=== PATIENT | male | born 1960 | race Caucasian/White ===

== ENCOUNTER 2020-05-12 08:10 | Outpatient (REF) | payer OTHER, SELFPAY ==
[2020-05-12 09:37] LABS: MANUAL DIFF FLAG NO
[2020-05-12 09:41] LABS: Basophils Percent Auto 0.5 % (0-2); Eosinophils Absolute Auto 0.3 X10*3/uL (0.0-0.4); Eosinophils Percent Auto 5.3 % (0-4); Hematocrit 46.2 % (42-52); Imm Gran Abs Auto 0.03 X10*3/uL (0.00-0.03); Imm Gran Pct Auto 0.5 % (0.0-0.4); Lymphocytes Absolute Auto 1.6 X10*3/uL (1.2-4.9); Lymphocytes Percent Auto 28.8 % (20-40); Mean Corpuscular HGB Conc 32.5 g/dl (31.0-36.0); Mean Corpuscular Hemoglobin 31.8 pg (27.0-33.0); Mean Corpuscular Volume 97.9 fL (80-98); Mean Platelet Volume 11.2 fL (9.4-12.4); Monocytes Absolute Auto 0.6 X10*3/uL (0.1-1.2); Monocytes Percent Auto 10.6 % (2-11); Neutrophils Percent Auto 54.3 % (45-73); Platelet Count 245 X10*3/uL (160-400); Red Blood Count 4.72 X10*6/uL (4.60-5.80); Red Cell Distribution Width 13.7 % (11.0-16.0); White Blood Count 5.5 X10*3/uL (4.8-10.8)
[2020-05-12 09:50] LABS: Estimated Average Glucose 100 mg/dL; Hemoglobin A1c % 5.1 %
[2020-05-12 09:56] LABS: Glucose Urine UA NEG (NEG); Leukocyte Esterase Urine NEG (NEG); Nitrite Urine NEG (NEG); Specific Gravity - Urine >= 1.030 (1.005-1.025); Urine Blood NEG (NEG); Urine Ketones 15 MG/DL (NEG); Urine Protein NEG (NEG-TRACE)
[2020-05-12 09:59] LABS: Appearance Urine CLEAR; Color Urine YELLOW
[2020-05-12 10:09] LABS: Alanine Aminotransferase 16 U/L (0-40); Albumin Level 4.1 g/dL (3.5-5.0); Alkaline Phosphatase 70 U/L (39-117); Anion Gap 14 (12-20); Aspartate Amino Transferase 22 U/L (5-37); Bilirubin Total 1.1 mg/dL (0.0-1.0); Blood Urea Nitrogen 21 mg/dL (9-16); Calcium 8.7 mg/dL (8.4-10.2); Carbon Dioxide 27 mmol/L (22-29); Chloride 103 mmol/L (96-108); Cholesterol 261 mg/dL; Estimated Glomerular Filt Rate > 60; Glucose Fasting 89 mg/dL (60-99); HDL Cholesterol 72 mg/dL; LDL Cholesterol Calculated 173 mg/dl; Potassium 4.6 mmol/l (3.3-5.1); Sodium 139 mmol/L (135-145); Total Protein 6.8 g/dL (6.5-8.0); Triglycerides 80 mg/dL
[2020-05-12 11:08] LABS: Creatinine Urine 250.93 mg/dL; Microalbum/Creatinine Ratio Ur 8.3 ug/mg cr
== END 2020-05-12 08:11 | disposition home or self-care (01) ==
LOC: HO.LAB 08:10
PROVIDERS: PCP Internal Medicine; Visit Provider Internal Medicine
DX: R73.09 Other abnormal glucose (principal); Z00.00 Encounter for general adult medical examination without abnormal findings; E78.00 Pure hypercholesterolemia, unspecified
CPT/HCPCS: 36415; 80053; 80061; 81003; 82043; 83036; 84153; 85025

== ENCOUNTER 2021-05-31 10:35 | Outpatient (REF) | payer BC, SELFPAY ==
[2021-05-31 10:39] LABS: MANUAL DIFF FLAG NO
[2021-05-31 11:12] LABS: Basophils Percent Auto 0.7 % (0-2); Eosinophils Absolute Auto 0.3 X10*3/uL (0.0-0.4); Eosinophils Percent Auto 5.9 % (0-4); Hematocrit 44.8 % (42.0-52.0); Hemoglobin 14.5 g/dl (14.0-18.0); Imm Gran Abs Auto 0.01 X10*3/uL (0.00-0.03); Imm Gran Pct Auto 0.2 % (0.0-0.4); Lymphocytes Absolute Auto 1.9 X10*3/uL (1.2-4.9); Lymphocytes Percent Auto 34.6 % (20-40); Mean Corpuscular HGB Conc 32.4 g/dl (31.0-36.0); Mean Corpuscular Hemoglobin 32.3 pg (27.0-33.0); Mean Corpuscular Volume 99.8 fL (80.0-98.0); Mean Platelet Volume 11.6 fL (9.4-12.4); Monocytes Absolute Auto 0.6 X10*3/uL (0.1-1.2); Monocytes Percent Auto 11.2 % (2-11); Neutrophils Absolute Auto 2.6 x10*3/uL (2.0-8.3); Neutrophils Percent Auto 47.4 % (45-73); Platelet Count 227 X10*3/uL (160-400); Red Blood Count 4.49 X10*6/uL (4.60-5.80); Red Cell Distribution Width 13.5 % (11.0-16.0); White Blood Count 5.4 X10*3/uL (4.8-10.8)
[2021-05-31 11:19] LABS: Appearance Urine CLEAR; Color Urine YELLOW; Glucose Urine UA NEG (NEG); Leukocyte Esterase Urine NEG (NEG); Nitrite Urine NEG (NEG); Specific Gravity - Urine 1.025 (1.005-1.025); Urine Blood NEG (NEG); Urine Ketones 15 MG/DL (NEG); Urine Protein TRACE MG/DL (NEG-TRACE)
[2021-05-31 11:22] LABS: Estimated Average Glucose 97 mg/dL
[2021-05-31 11:41] LABS: Microalbum/Creatinine Ratio Ur 10.1 ug/mg cr
[2021-05-31 11:57] LABS: Alanine Aminotransferase 17 U/L (0-40); Albumin Level 3.9 g/dL (3.5-5.0); Alkaline Phosphatase 55 U/L (39-117); Anion Gap 11 (12-20); Aspartate Amino Transferase 23 U/L (5-37); Bilirubin Total 1.3 mg/dL (0.0-1.0); Blood Urea Nitrogen 19 mg/dL (9-16); Calcium 8.9 mg/dL (8.4-10.2); Carbon Dioxide 27 mmol/L (22-29); Chloride 103 mmol/L (96-108); Cholesterol 255 mg/dL; Estimated Glomerular Filt Rate > 60; Glucose Fasting 103 mg/dL (60-99); HDL Cholesterol 76 mg/dL; LDL Cholesterol Calculated 162 mg/dl; Potassium 3.9 mmol/L (3.3-5.1); Sodium 137 mmol/L (135-145); Total Protein 6.5 g/dL (6.5-8.0); Triglycerides 85 mg/dL
[2021-05-31 12:39] LABS: PSA,Total (Free>4and<10) 4.03 ng/mL (0.00-4.00)
[2021-05-31 13:08] LABS: Reflex LDLD? No
[2021-06-01 12:41] LABS: Free Prostate Spec Ag 0.3 ng/mL; Percent Free Prostate Spec Ag 9 % (calc) (>25); Prostate Specific Ag Total 3.5 ng/mL (< OR = 4.0)
== END 2021-05-31 10:36 | disposition home or self-care (01) ==
LOC: HO.LNP 10:35
PROVIDERS: Visit Provider Internal Medicine
DX: Z00.00 Encounter for general adult medical examination without abnormal findings (principal); Z12.5 Encounter for screening for malignant neoplasm of prostate; E78.00 Pure hypercholesterolemia, unspecified; R73.03 Prediabetes
CPT/HCPCS: 80053; 80061; 81003; 82043; 83036; 84153; 84154; 85025

== ENCOUNTER 2021-06-08 15:52 | Outpatient (REF) | payer BC, SELFPAY ==
[2021-06-08 17:08] LABS: PSA,Total (Free>4and<10) 3.76 ng/mL (0.00-4.00)
== END 2021-06-08 15:53 | disposition home or self-care (01) ==
LOC: HO.LNP 15:52
PROVIDERS: Visit Provider Internal Medicine
DX: R97.20 Elevated prostate specific antigen [PSA] (principal); Z12.5 Encounter for screening for malignant neoplasm of prostate
CPT/HCPCS: 84153

== ENCOUNTER 2021-09-16 11:30 | Outpatient (REF) | payer BC, SELFPAY ==
[2021-09-16 15:37] LABS: PSA,Total (Free>4and<10) 4.07 ng/mL (0.00-4.00)
[2021-09-17 11:17] LABS: Free Prostate Spec Ag 0.4 ng/mL; Percent Free Prostate Spec Ag 11 % (calc) (>25); Prostate Specific Ag Total 3.6 ng/mL (< OR = 4.0)
== END 2021-09-16 11:31 | disposition home or self-care (01) ==
LOC: HO.LNP 11:30
PROVIDERS: Visit Provider Internal Medicine
DX: Z12.5 Encounter for screening for malignant neoplasm of prostate (principal)
CPT/HCPCS: 84153; 84154

== ENCOUNTER 2022-06-07 12:18 | Outpatient (REF) | payer BC, SELFPAY ==
[2022-06-07 12:21] LABS: MANUAL DIFF FLAG NO
[2022-06-07 12:31] LABS: Appearance Urine Clear; Color Urine Dark Yellow; Glucose Urine UA Negative (Negative); Leukocyte Esterase Urine Negative (Negative); Nitrite Urine Negative (Negative); Specific Gravity - Urine >= 1.030 (1.005-1.025); UMIC TRIGGER UA YES; Urine Blood Negative (Negative); Urine Ketones 40 mg/dL (Negative); Urine Protein 30 (1+) mg/dL (Neg-Trace)
[2022-06-07 12:32] LABS: Basophils Percent Auto 0.4 % (0-2); Eosinophils Absolute Auto 0.3 X10*3/uL (0.0-0.4); Hematocrit 47.1 % (42.0-52.0); Hemoglobin 15.5 g/dl (14.0-18.0); Imm Gran Abs Auto 0.03 X10*3/uL (0.00-0.03); Imm Gran Pct Auto 0.4 % (0.0-0.4); Lymphocytes Absolute Auto 0.6 X10*3/uL (1.2-4.9); Lymphocytes Percent Auto 9.6 % (20-40); Mean Corpuscular HGB Conc 32.9 g/dl (31.0-36.0); Mean Corpuscular Hemoglobin 32.6 pg (27.0-33.0); Mean Corpuscular Volume 98.9 fL (80.0-98.0); Mean Platelet Volume 11.4 fL (9.4-12.4); Monocytes Absolute Auto 0.6 X10*3/uL (0.1-1.2); Monocytes Percent Auto 8.7 % (2-11); Neutrophils Absolute Auto 5.2 x10*3/uL (2.0-8.3); Neutrophils Percent Auto 76.9 % (45-73); Platelet Count 249 X10*3/uL (160-400); Red Blood Count 4.76 X10*6/uL (4.60-5.80); Red Cell Distribution Width 13.9 % (11.0-16.0); White Blood Count 6.7 X10*3/uL (4.8-10.8)
[2022-06-07 12:33] LABS: Bacteria Urine None Seen (None Seen); Hyaline Casts Urine 0-2 /LPF (0-2); RBC Urine 0-2 /HPF (0-2); Squamous Epithelial Cell Urine 0-2 /HPF (0-2); WBC Urine 0-5 /HPF (0-5)
[2022-06-07 12:45] LABS: Estimated Average Glucose 91 mg/dL; Hemoglobin A1c % 4.8 %
[2022-06-07 13:08] LABS: Alanine Aminotransferase 11 U/L (0-40); Albumin Level 4.2 g/dL (3.5-5.0); Alkaline Phosphatase 80 U/L (39-117); Anion Gap 11 (12-20); Aspartate Amino Transferase 18 U/L (5-37); Bilirubin Total 1.2 mg/dL (0.0-1.0); Blood Urea Nitrogen 13 mg/dL (9-16); Calcium 8.9 mg/dL (8.4-10.2); Carbon Dioxide 27 mmol/L (22-29); Chloride 103 mmol/L (96-108); Cholesterol 242 mg/dL; Estimated Glomerular Filt Rate > 60; Glucose Fasting 104 mg/dL (60-99); HDL Cholesterol 74 mg/dL; LDL Cholesterol Calculated 152 mg/dl; Sodium 137 mmol/L (135-145); Total Protein 6.9 g/dL (6.5-8.0); Triglycerides 83 mg/dL
[2022-06-07 13:28] LABS: Microalbum/Creatinine Ratio Ur 9.8 ug/mg cr
== END 2022-06-07 12:19 | disposition home or self-care (01) ==
LOC: HO.LNP 12:18
PROVIDERS: Visit Provider Internal Medicine
DX: Z00.00 Encounter for general adult medical examination without abnormal findings (principal); R73.03 Prediabetes; E78.00 Pure hypercholesterolemia, unspecified
CPT/HCPCS: 80053; 80061; 81001; 82043; 83036; 85025

== ENCOUNTER 2023-07-17 12:05 | Outpatient (REF) | payer BC, SELFPAY ==
[2023-07-17 12:09] LABS: MANUAL DIFF FLAG NO
[2023-07-17 12:21] LABS: Basophils Absolute Auto 0.1 X10*3/uL (0.0-0.2); Basophils Percent Auto 1.3 % (0-2); Eosinophils Absolute Auto 0.4 X10*3/uL (0.0-0.4); Hematocrit 47.2 % (42.0-52.0); Hemoglobin 15.6 g/dl (14.0-18.0); Imm Gran Abs Auto 0.02 X10*3/uL (0.00-0.03); Imm Gran Pct Auto 0.3 % (0.0-0.4); Lymphocytes Absolute Auto 1.9 X10*3/uL (1.2-4.9); Mean Corpuscular HGB Conc 33.1 g/dl (31.0-36.0); Mean Corpuscular Hemoglobin 31.8 pg (27.0-33.0); Mean Corpuscular Volume 96.3 fL (80.0-98.0); Mean Platelet Volume 11.2 fL (9.4-12.4); Monocytes Absolute Auto 0.5 X10*3/uL (0.1-1.2); Monocytes Percent Auto 8.6 % (2-11); Neutrophils Absolute Auto 3.3 x10*3/uL (2.0-8.3); Neutrophils Percent Auto 52.8 % (45-73); Platelet Count 262 X10*3/uL (160-400); Red Cell Distribution Width 13.5 % (11.0-16.0); White Blood Count 6.2 X10*3/uL (4.8-10.8)
[2023-07-17 12:29] LABS: Appearance Urine Clear; Color Urine Dark Yellow; Glucose Urine UA Negative (Negative); Leukocyte Esterase Urine Trace (Negative); Nitrite Urine Negative (Negative); PH 5.5 (5.0-9.0); UMIC TRIGGER UACC YES; Urine Blood Negative (Negative); Urine Ketones 40 mg/dL (Negative); Urine Protein Trace mg/dL (Neg-Trace)
[2023-07-17 12:35] LABS: Estimated Average Glucose 88 mg/dL; Hemoglobin A1c % 4.7 % (<6.0)
[2023-07-17 12:36] LABS: Bacteria Urine None Seen (None Seen); Hyaline Casts Urine 0-2 /LPF (0-2); RBC Urine 0-2 /HPF (0-2); Squamous Epithelial Cell Urine 0-2 /HPF (0-2); WBC Urine 0-5 /HPF (0-5)
[2023-07-17 12:52] LABS: Alanine Aminotransferase 12 U/L (0-40); Alkaline Phosphatase 74 U/L (39-117); Anion Gap 16 (12-20); Aspartate Amino Transferase 17 U/L (5-37); Blood Urea Nitrogen 13 mg/dL (9-16); Calcium 9.2 mg/dL (8.4-10.2); Carbon Dioxide 27 mmol/L (22-29); Chloride 101 mmol/L (96-108); Cholesterol 224 mg/dL (<200); Estimated Glomerular Filt Rate > 60; Glucose Fasting 85 mg/dL (60-99); HDL Cholesterol 72 mg/dL (>40); LDL Cholesterol Calculated 135 mg/dL (<100); Potassium 3.6 mmol/L (3.3-5.1); Sodium 140 mmol/L (135-145); Triglycerides 88 mg/dL (<150)
[2023-07-17 13:05] LABS: Creatinine Urine 252.34 mg/dL; Microalbum/Creatinine Ratio Ur 14.6 ug/mg cr (<30)
[2023-07-17 13:10] LABS: PSA,Total (Free>4and<10) < 0.10 ng/mL (0.00-4.00)
== END 2023-07-17 12:06 | disposition home or self-care (01) ==
LOC: HO.LNP 12:05
PROVIDERS: Visit Provider Internal Medicine
DX: Z00.00 Encounter for general adult medical examination without abnormal findings (principal); Z12.5 Encounter for screening for malignant neoplasm of prostate; E78.00 Pure hypercholesterolemia, unspecified; R73.03 Prediabetes
CPT/HCPCS: 80053; 80061; 81001; 82043; 82570; 83036; 84153; 85025

== ENCOUNTER 2024-07-23 07:30 | Outpatient (REF) | payer BC, SELFPAY ==
[2024-07-23 10:52] LABS: MANUAL DIFF FLAG NO
[2024-07-23 10:59] LABS: Basophils Absolute Auto 0.1 X10*3/uL (0.0-0.2); Basophils Percent Auto 0.9 % (0-2); Eosinophils Absolute Auto 0.3 X10*3/uL (0.0-0.4); Eosinophils Percent Auto 4.7 % (0-4); Hematocrit 44.1 % (42.0-52.0); Hemoglobin 14.7 g/dl (14.0-18.0); Imm Gran Abs Auto 0.02 X10*3/uL (0.00-0.03); Imm Gran Pct Auto 0.3 % (0.0-0.4); Lymphocytes Absolute Auto 1.7 X10*3/uL (1.2-4.9); Lymphocytes Percent Auto 26.6 % (20-40); Mean Corpuscular HGB Conc 33.3 g/dl (31.0-36.0); Mean Corpuscular Hemoglobin 32.2 pg (27.0-33.0); Mean Corpuscular Volume 96.5 fL (80.0-98.0); Mean Platelet Volume 10.8 fL (9.4-12.4); Monocytes Absolute Auto 0.5 X10*3/uL (0.1-1.2); Monocytes Percent Auto 8.3 % (2-11); Neutrophils Absolute Auto 3.8 x10*3/uL (2.0-8.3); Neutrophils Percent Auto 59.2 % (45-73); Platelet Count 300 X10*3/uL (160-400); Red Blood Count 4.57 X10*6/uL (4.60-5.80); Red Cell Distribution Width 14.3 % (11.0-16.0); White Blood Count 6.4 X10*3/uL (4.8-10.8)
[2024-07-23 11:09] LABS: Appearance Urine Clear; Color Urine Yellow; Glucose Urine UA Negative (Negative); Leukocyte Esterase Urine Negative (Negative); Nitrite Urine Negative (Negative); Specific Gravity - Urine 1.025 (1.005-1.025); Urine Blood Negative (Negative); Urine Ketones 40 mg/dL (Negative); Urine Protein Negative (Neg-Trace)
[2024-07-23 11:32] LABS: Alanine Aminotransferase 14 U/L (0-40); Alkaline Phosphatase 65 U/L (39-117); Anion Gap 11 (12-20); Aspartate Amino Transferase 23 U/L (5-37); Blood Urea Nitrogen 17 mg/dL (9-16); Calcium 8.6 mg/dL (8.4-10.2); Carbon Dioxide 27 mmol/L (22-29); Chloride 104 mmol/L (96-108); Cholesterol 251 mg/dL (<200); Estimated Glomerular Filt Rate > 60; Glucose Fasting 88 mg/dL (60-99); HDL Cholesterol 83 mg/dL (>40); LDL Cholesterol Calculated 154 mg/dL (<100); Potassium 4.2 mmol/L (3.3-5.1); Sodium 138 mmol/L (135-145); Total Protein 6.8 g/dL (6.5-8.0); Triglycerides 71 mg/dL (<150)
[2024-07-23 11:40] LABS: Estimated Average Glucose 97 mg/dL; Hemoglobin A1C 119.8627 umol/L; Total Hemoglobin (HGBA1C) 3838.9395 umol/L
--- OUTSIDE RECORDS SUMMARY | 2024-07-23 11:55 | XMS_ITS | Patient Health Record ---
Author Organization Timothy Choudhury MD Address [address] [place], [place] [id number] Care Team Providers Care Calender Roll Operator Name Role Phone Timothy Choudhury Primary Care Provider Allergies No Known Allergies Results Component Value Reference Range Notes Occult Blood, Stool, Guaiac Reviewed date:07/27/2023 09:37:04 AM Interpretation:Negative Performing Lab: Notes/Report: Negative Occult Blood, Stool, Guaiac Neg Complete Blood Count Auto Di ff (Not yet reviewed by provider) Interpretation: Performing Lab:[facility], [address] [place] [phone] Notes/Report: White Blood Count 6.4 4.8-10.8 X10*3/uL Red Blood Count 4.57 4.60-5.80 X10*6/uL Hemoglobin 14.7 14.0-18.0 g/dl Hematocrit 44.1 42.0-52.0 % Mean Corpuscular Volume 96.5 80.0-98.0 fL Mean Corpuscular Hemoglobin 32.2 27.0-33.0 pg Mean Corpuscular HGB Conc 33.3 31.0-36.0 g/dl Red Cell Distribution Width 14.3 11.0-16.0 % Platelet Count 300 160-400 X10*3/uL Mean Platelet Volume 10.8 9.4-12.4 fL Neutrophils Percent Auto 59.2 45-73 % Imm Gran Pct Auto 0.3 0.0-0.4 % Lymphocytes Percent Auto 26.6 20-40 % Monocytes Percent Auto 8.3 2-11 % Eosinophils Percent Auto 4.7 0-4 % Basophils Percent Auto 0.9 0-2 % NRBC Pct Auto 0.0 0.0-0.2 /100WBC Neutrophils Absolute Auto 3.8 2.0-8.3 x10*3/u L Imm Gran Abs Auto 0.02 0.00-0.03 X10*3/uL Lymphocytes Absolute Auto 1.7 1.2-4.9 X10*3/u L Monocytes Absolute Auto 0.5 0.1-1.2 X10*3/uL Eosinophils Absolute Auto 0.3 0.0-0.4 X10*3/u L Basophils Absolute Auto 0.1 0.0-0.2 X10*3/uL NRBC Abs Auto 0.000 0.0-0.012 X10*3/uL Comprehensive Mchenry. Panel [facility] (Not yet reviewed by provider) Interpretation: Performing Lab:[facility], [address] [place] [phone] Notes/Report: Sodium 138 135-145 mmol/L Potassium 4.2 3.3-5.1 mmol/L Chloride 104 96-108 mmol/L Carbon Dioxide 27 22-29 mmol/L Anion Gap 11 12-20 Blood Urea Nitrogen 17 9-16 mg/dL Creatinine 0.74 0.5-1.4 mg/dL Estimated Glomerular Filt Rate > 60 Chronic Kidney Disease: Estimated GFR < 60 mL/min/1.73m2 Severe Kidney Disease: Estimated GFR < 15 mL/min/1.73m2 Glucose Fasting 88 60-99 mg/dL Calcium 8.6 8.4-10.2 mg/dL Bilirubin Total 1.0 0.0-1.0 mg/dL Aspartate Amino Transferase 23 5-37 U/L Alanine Aminotransferase 14 0-40 U/L Total Protein 6.8 6.5-8.0 g/dL Albumin Level 4.0 3.5-5.0 g/dL Alkaline Phosphatase 65 39-117 U/L Lipid Panel (Not yet reviewe d by provider) Interpretation: Performing Lab:[facility], [address] [place] [phone] Notes/Report: Triglycerides 71 <150 mg/dL Desirable Triglyceride: less than 150 mg/dL Borderline High Triglyceride 150-199 mg/dL High Triglyceride: 200-499 mg/dL Very High Triglyceride: greater than or equal to 5OO mg/dL Cholesterol 251 <200 mg/dL Desirable Cholesterol: less than 200 mg/dL Borderline High Cholesterol: 200-239 mg/dL High Cholesterol: greater than 239 mg/dL LDL Cholesterol Calculated 154 <100 mg/dL Desirable LDL: less than 100 mg/dL Near Optimal/Above Optimal LDL: 110-129 mg/dL Borderline High LDL: 130-159 mg/dL High LDL: 160-189 mg/dL Very High LDL: greater than or equal to 190 mg/dL HDL Cholesterol 83 >40 mg/dL Desirable HDL: greater than 40 mg/dL Note: This HDL assay may give artificially low results in patients with liver disease. Hemoglobin A1c (Not yet revi ewed by provider) Interpretation: Performing Lab:[facility], [address] [place] [phone] Notes/Report: Hemoglobin A1c % 5.0 <6.0 % Hemoglobin A1C Reference Range Adults: 4.8 - 6.0 % Non diabetic: < 6.0 % Goal: < 7.0 % Additional Action Suggested: > 8.0 % Note: Hemoglobin A1c results are invalid for patients with abnormal amounts of HbF. Blood transfusions may impact the HbA1c concentration in the patient sample. Estimated Average Glucose 97 eAG = Estimated average glucose which is %A1C expressed as average glucose, using the formula of the [id number] Average Glucose study (ADAG), Diabetes Care, Vol.31,#8, 2007 UA CC w/rflx Micro + Cult (N ot yet reviewed by provider) Interpretation: Performing Lab:[facility], [address] [place] [phone] Notes/Report: [id number] 0730 Urine, Clean Catch Color Urine Yellow Appearance Urine Clear PH 6.0 5.0-9.0 Glucose Urine UA Negative Negative mg/dL Urine Blood Negative Negative Specific Kemp - Urine 1.025 1.005-1.025 Urine Protein Negative Neg-Trace mg/dL Urine Ketones 40 Negative mg/dL Nitrite Urine Negative Negative Leukocyte Esterase Urine Negative Negative Reason For Referral No Information Medications Medication SIG (Take, Route, Fr equency, Duration) Notes Start Date End Date Status Alicia-D 24 Hour No t-Taking Tadalafil 5 MG 1/2 tablet as needed Orally Once a day as needed 07/21/2022 Active Immunizations Vaccine Route Administration Date Status Comme nts Fluarix Quadrivalent IM Intramuscular 03/30/2020 Administe red Fluarix Quadrivalent IM Intramuscular 04/09/2021 Administe red Covid Vaccine Unknown 10/01/2020 Administered SARS-COV-2 Pfizer Unknown 05/11/2021 Administered Fluarix Quadrivalent IM Intramuscular 06/07/2022 Administe red SARS-COV-2 Pfizer Unknown 06/02/2022 Administered Fluarix Quadrivalent - 150 IM Intramuscular 07/17/2023 Adm inistered Fluarix Quadrivalent - 150 IM Intramuscular 04/19/2024 Adm inistered Fluarix Quadrivalent Unknown 06/15/2017 Refused Fluarix Quadrivalent Unknown 12/11/2018 Refused Social History Tobacco Use: Social History Observation Description Date Details (start date - stop date) Never Smoker NA - NA Tobacco Use/Smoking Question Answer Notes Patient is a nonsmoker Additional Findings: Tobacco Non-User Cu rrent non-smoker, currently using no form of tobacco Alcohol Screen Question Answer Notes Did you have a drink contain ing alcohol in the past year? Yes How often did you have a dri nk containing alcohol in the past year? 2 to 4 times a month (2 points) How many drinks did you have on a typical day when you were drinking in the past year? 1 or 2 drinks (0 point) How often did you have 6 or more drinks on one occasion in the past year? Never (0 point) Points 2 Interpretation Negative Problems Problem Type SNOMED Code ICD Code Onset Dates Problem Status W/U Status Risk Notes Problem 061849381 Tubular adenoma (D36.9) Active confir med Problem 517734872 Other male erect ile dysfunction (N52.8) Active confirmed Problem Malignant tumor of prostate (644001762) Prostate cancer (C61) Active confirmed Problem 2930073 Prediabetes (R73.09) Active confirmed Problem 002399022 Pure hypercholesterolemia (E78.00) Active confirmed Vital Signs Blood pressure diastolic 60 mm Hg 07/27/2023 Height 70.5 in 07/27/2023 Blood pressure systolic 138 mm Hg 07/27/2023 Weight 162 lbs 07/27/2023 BMI 22.91 kg/m2 07/27/2023 Encounters Encounter Location Date Provider Diagnosis Timothy Choudhury MD [address] [place] [address] [place] [phone] 07/23/2024 Timothy Choudhury Blood tests for rout ine general physical examination Z00.00 and Prediabetes R73.09 Timothy Choudhury MD [address] [place] [phone] 07/27/2023 Timothy Choudhury Prostate cancer C61 ; Annual physical exam Z00.00 ; Other male erectile dysfunction N52.8 ; Tubular adenoma D36.9 ; Prediabetes R73.09 ; Pure hypercholesterolemia E78.00 ; Colon cancer screening Z12.11 and Depression screening Z13.31 Timothy Choudhury MD [address] [place] [phone] 04/19/2024 Timothy Choudhury Encounter for immuni zation Z23 Assessments Encounter Date Diagnosis (ICD Code) Assessment Notes Treatment Notes Treatment Clinical Notes Section Notes 07/23/2024 Blood tests for rout ine general physical examination (ICD-10 - Z00.00) 07/27/2023 Prostate cancer (ICD -10 - C61) is followed by urology 07/27/2023 Annual physical exam (ICD-10 - Z00.00) labs reviewed and discussed with patient 04/19/2024 Encounter for immunization (ICD-10 - Z23) 07/23/2024 Prediabetes (ICD-10 - R73.09) 07/27/2023 Other male erectile dysfunction (ICD-10 - N52.8) started to take tadalafil 07/27/2023 Tubular adenoma (ICD -10 - D36.9) will get colonoscopy this year/ [facility] DUE END YEAR , HE IS ON PV RECALL LIST AND HE IS AWARE THEY WILL CONTACT HIM 07/27/2023 Prediabetes (ICD-10 - R73.09) stable, no need for medication at this time 07/27/2023 Pure hypercholesterolemia (ICD-10 - E78.00) stable 07/27/2023 Colon cancer screeni ng (ICD-10 - Z12.11) guaiac negative 07/27/2023 Depression screening (ICD-10 - Z13.31) negative screen Plan Of Treatment Pending Test Test Name Order Date Electrocardiogram (EKG) 10/20/2015 Electrocardiogram (EKG) 11/29/2016 XR CHEST 2 VIEW PA & LAT 12/11/2018 Complete Blood Count Auto Diff 5 Comprehensive Mchenry. Panel Fast 5 Lipid Panel 07/23/2024 PSA,Total (Free>4and<10) 07/23/2024 Microalbumin, Random 07/23/2024 Hemoglobin A1c 07/23/2024 UA CC w/rflx Micro + Cult 07/23/2024 UA ClnCatch+Micro w/rflx Cult 07/23/2024 Next Appt Details Provider Name:Timothy nolasco, 07/30/2024 08:30:00 AM, [address] [place] [address], [address], [place], [place], [phone], Insurance Providers Payer Name Payer Address Payer Phone Subscriber Number Group Number Insured Name Patient Relationship to Insured Coverage Start Date Coverage End Date [employer] [address] [place], [place] [phone] [id number] Miquel Jesus Self - patient is the insured Medical (General) History Medical History History ICD Code Refuses flu shot (1-22-13) Colonoscopy 05/31/[address] Naina [place] t 5 years
--- OUTSIDE RECORDS SUMMARY | 2024-07-23 11:55 | XMS_ITS ---
Author Organization Timothy Choudhury MD Address [address] [place], [place] [phone] Care Team Providers Care Education And Development Manager Name Role Phone Timothy Choudhury Primary Care Provider Allergies No Known Allergies Results Component Value Reference Range Notes Occult Blood, Stool, Guaiac Reviewed date:07/27/2023 09:37:04 AM Interpretation:Negative Performing Lab: Notes/Report: Negative Occult Blood, Stool, Guaiac Neg REASON FOR VISIT annual visit, No Covid symptoms Medications Medication SIG (Take, Route, Fr equency, Duration) Notes Start Date End Date Status Alicia-D 24 Hour No t-Taking Tadalafil 5 MG 1/2 tablet as needed Orally Once a day as needed 07/21/2022 Active Social History Tobacco Use: Social History Observation [...] Never (0 point) Points 2 Interpretation Negative Vital Signs Blood pressure systolic 138 mm Hg 07/27/19 24 Blood pressure diastolic 60 mm Hg 024 Height 70.5 in 07/27/2023 Weight 162 lbs 07/27/2023 BMI 22.91 kg/m2 07/27/2023 Encounters Encounter Location Date Provider Diagnosis Timothy Choudhury MD [address] [place], [place] [phone] 07/27/2023 Timothy Choudhury Prostate cancer C61 ; Annual physical exam Z00.00 ; Other male erectile dysfunction N52.8 ; Tubular adenoma D36.9 ; Prediabetes R73.09 ; Pure hypercholesterolemia E78.00 ; Colon cancer screening Z12.11 and Depression screening Z13.31 Assessments Encounter Date Diagnosis (ICD Code) Assessment Notes Treatment Notes Treatment Clinical Notes Section Notes 07/27/2023 Prostate cancer (ICD -10 - C61) is followed by urology 07/27/2023 Annual physical exam (ICD-10 - Z00.00) labs reviewed and discussed with patient 07/27/2023 Other male erectile dysfunction (ICD-10 - N52.8) started to take tadalafil 07/27/2023 Tubular adenoma (ICD -10 - D36.9) will get colonoscopy this year/ [facility] DUE END YEAR , HE IS ON PV RECALL LIST AND HE IS AWARE THEY WILL CONTACT HIM 07/27/2023 Prediabetes (ICD-10 - R73.09) stable, no need for medication at this time 07/27/2023 Pure hypercholesterolemia (ICD-10 - E78.00) stable 07/27/2023 Colon cancer screeni ng (ICD-10 - Z12.11) guaiac negative 07/27/2023 Depression screening (ICD-10 - Z13.31) negative screen Plan Of Treatment Treatment Notes Assessment Notes Prostate cancer is followed by urolo gy Annual physical exam labs reviewed and d iscussed with patient Other male erectile dysfunction started to take tadalafil Tubular adenoma will get colonoscopy this year/ [facility] DUE END YEAR , HE IS ON PV RECALL LIST AND HE IS AWARE THEY WILL CONTACT HIM Prediabetes stable, no need for medication at this time Pure hypercholesterolemia stable Colon cancer screening guaiac negative Depression screening negative screen Next Appt Details Follow Up: 1 Year, Reason: Provider Name:Timothy nolasco, 07/30/2024 08:30:00 AM, [address], [address], [place], [place], [phone], Progress Notes * Miquel JESUSDOB:1960 (62 yo M)Acc No.[id number]:07/27/2023 Progress Notes Patient:?Miquel Jesus Provider:?Timothy Choudhury MD :1960???Age:62 Y???Sex:Male Vijay e:07/27/2023 [address]:[address] [place], [place] [address] Subjective: * Chief Complaints: * ???Annual visitNo Covid symp toms * HPI: ???Depression Screening:?PHQ-9?Little interest or pleasure in doing things?Not at all,?Feeling down, depressed, or hopeless?Not at all,?Trouble falling or staying asleep, or sleeping too much?Not at all,?Feeling tired or having little energy?Not at all,?Poor appetite or overeating?Not at all,?Feeling bad about yourself or that you are a failure, or have let yourself or your family down?Not at all,?Trouble concentrating on things, such as reading the newspaper or watching television?Not at all,?Moving or speaking so slowly that other people could have noticed; or the opposite, being so fidgety or restless that you have been moving around a lot more than usual?Not at all,?Thoughts that you would be better off or of hurting yourself in some way?Not at all,?Total Score?0.?Interpretation and Intervention?Depression Screening Findings?Negative,?Follow-Up for Depression?: review of PHQ-9 found negative result, no follow-up needed.?Communication Needs:?Communication Needs?Does the patient have a hearing impairment?No,?Does the patient have a vision impairment??Yes,?If yes, what is the vision impairment??Glasses,?Does the patient have a cognition impairment??No.?SDOH Questions:?SDOH Questions?In the past year have you been worried about losing housing??No,?In the past year have you or any family members you live with been unable to get any of the following when it was really needed? Check all that apply:?None.?Symptom(s):? patient is a 62 yo male here for physical with review of recent labs and follow up of chronic issues/ had prostate cancer and has incontinence and erectile dysfunction. * ROS:?General/Constitutional:?Patient denies?fatigue , headache.?Change in appetite?denies.?Chills?denies.?Fever?denies.?Ophthalmologic:?Blurred vision?denies.?Discharge?denies.?Pain?denies.?ENT:?Patient denies?decreased sense of smell , any loss of taste , sore throat.?Decreased hearing?denies.?Sore throat?denies.?Swollen glands?denies.?Endocrine:?Cold intolerance?denies.?Excessive thirst?denies.?Heat intolerance?denies.?Weight loss?denies.?Respiratory:?Cough?denies.?Shortness of breath at rest?denies.?Shortness of breath with exertion?denies.?Wheezing?denies.?Cardiovascular:?Chest pain at rest?denies.?Chest pain with exertion?denies.?Irregular heartbeat?denies.?Shortness of breath?denies.?Gastrointestinal:?Abdominal pain?denies.?Change in bowel habits?denies.?Diarrhea?denies.?Nausea?denies.?Rectal bleeding?denies.?Vomiting?denies .?Genitourinary:?Blood in urine?denies.?Difficulty urinating?denies.?Frequent urination?denies.?Musculoskeletal:?Patient denies?muscle aches.?Painful joints?denies.?Weakness?denies.?Peripheral Vascular:?Patient denies?red and blue toes.?Skin:?Dry skin?denies.?Itching?denies.?Denies?Mole(s),? changes in moles, new moles or any lesions of concern.?Denies?Photosensitivity.?Rash?denies.?Neurologic:?Dizziness?denies.?Fainting?denies.?Headache?denies.? * Medical History:? * Surgical History:? * Hospitalization/Major Diagno stic Procedure:? * Family History:?Father: alexus alcaraz 88 yrs.?Mother: 76 yrs, diagnosed with Diabetes, Cancer, Hypertension.?1 brother(s) . .? Father-Healthy, Denies mental health/substance abuse family history, Denies mental health/substance abuse family history, No pertinent family medical history, No pertinent family medical history. * Social History:?Tobacco Use:?Tobacco Use/Smoking?Patient is a?nonsmoker,?Additional Findings: Tobacco Non-User?Current non-smoker, currently using no form of tobacco.?Drugs/Alcohol:?Alcohol Screen?Did you have a drink containing alcohol in the past year??Yes,?How often did you have a drink containing alcohol in the past year??2 to 4 times a month (2 points),?How many drinks did you have on a typical day when you were drinking in the past year??1 or 2 drinks (0 point),?How often did you have 6 or more drinks on one occasion in the past year??Never (0 point),?Points?2,?Interpretation?Negative.?Miscellaneous:?Caffeine: yes, frequency:, 1-2 cups per day. no Children. no Community involvements. Exercise: yes, Bowling once a week. Home smoke detector use: yes. Housing: living with relatives. Living with: family. Marital status: . Occupation: works full-time. Pets: none. no Travel outside of the [place]. * Medications:?TakingTadalafil 5 MG Tablet 1/2 tablet as needed Orally Once a day as neededTaking Tadalafil 5 MG Tablet 1/2 tablet as needed Orally Once a day as neededNot-Taking/PRNAllegra-D 24 Hour Medication List reviewed and reconciled with the patientNot-Taking/PRN Alicia-D 24 Hour Medication List reviewed and reconciled with the patient * Allergies:?N.K.D.A.yes[Aller gies Verified] Objective: * Vitals:?Ht: 70.5, Wt:162, BM I:22.91, BP:138/60. * ???Past Orders: ???Lab:Hemoglobin A1c (Order Date - 07/17/2023) (Collection Date - 07/17/2023) ? Value Reference Range ?Hemoglobin A1c % 4.7 <6. 0 - % ?Estimated Average Glucose 88 - mg/dL ???Lab:Complete Blood Count Auto Diff (Order Date - 07/17/2023) (Collection Date - 07/17/2023) ? Value Reference Range ?White Blood Count 6.2 4. 8-10.8 - X10*3/uL ?Red Blood Count 4.90 4.60 -5.80 - X10*6/uL ?Hemoglobin 15.6 14.0-18.0 - g/dl ?Hematocrit 47.2 42.0-52.0 - % ?Mean Corpuscular Volume 96.3 80.0-98.0 - fL ?Mean Corpuscular Hemoglobin 31.8 27.0-33.0 - pg ?Mean Corpuscular HGB Conc 33.1 31.0-36.0 - g/dl ?Red Cell Distribution Width 13.5 11.0-16.0 - % ?Platelet Count 262 160-4 00 - X10*3/uL ?Mean Platelet Volume 11.2 9.4-12.4 - fL ?Neutrophils Percent Auto 52.8 45-73 - % ?Imm Gran Pct Auto 0.3 0. 0-0.4 - % ?Lymphocytes Percent Auto 30.0 20-40 - % ?Monocytes Percent Auto 8.6 2-11 - % ?Eosinophils Percent Auto 7.0 H 0-4 - % ?Basophils Percent Auto 1.3 0-2 - % ?NRBC Pct Auto 0.0 0.0-0. 2 - /100WBC ?Neutrophils Absolute Auto 3.3 2.0-8.3 - x10*3/uL ?Imm Gran Abs Auto 0.02 0. 00-0.03 - X10*3/uL ?Lymphocytes Absolute Auto 1.9 1.2-4.9 - X10*3/uL ?Monocytes Absolute Auto 0.5 0.1-1.2 - X10*3/uL ?Eosinophils Absolute Auto 0.4 0.0-0.4 - X10*3/uL ?Basophils Absolute Auto 0.1 0.0-0.2 - X10*3/uL ?NRBC Abs Auto 0.000 0.0-0. 012 - X10*3/uL ???Lab:UA ClnCatch+Micro w/r flx Cult (Order Date - 07/17/2023) (Collection Date - 07/17/2023) ? Value Reference Range ?Color Urine Dark Yellow - ?Appearance Urine Clear - ?PH 5.5 5.0-9.0 - ?Glucose Urine UA Negative Neg ative - mg/dL ?Urine Blood Negative Negative - ?Specific Leonard - Urine 1.020 1.005-1.025 - ?Urine Protein Trace Neg-Tr yuki - mg/dL ?Urine Ketones 40 Negati ve - mg/dL ?Nitrite Urine Negative Negati ve - ?Leukocyte Esterase Urine Trace A Negative - ?RBC Urine 0-2 0-2 - /HPF ?WBC Urine 0-5 0-5 - /HPF ?Squamous Epithelial Cell Urine 0-2 0-2 - /HPF ?Bacteria Urine None Seen None Seen - ?Hyaline Casts Urine 0-2 0-2 - /LPF ???Lab:Comprehensive [place]. P rebecca Fast (Order Date - 07/17/2023) (Collection Date - 07/17/2023) ? Value Reference Range ?Sodium 140 135-145 - mmo l/L ?Bilirubin Total 1.0 0.0- 1.0 - mg/dL ?Aspartate Amino Transferase 17 5-37 - U/L ?Alanine Aminotransferase 12 0-40 - U/L ?Total Protein 7.0 6.5-8. 0 - g/dL ?Albumin Level 4.0 3.5-5. 0 - g/dL ?Alkaline Phosphatase 74 39-117 - U/L ?Potassium 3.6 3.3-5.1 - mmol/L ?Chloride 101 96-108 - mm ol/L ?Carbon Dioxide 27 22-29 - mmol/L ?Anion Gap 16 12-20 - ?Blood Urea Nitrogen 13 9-16 - mg/dL ?Creatinine 0.87 0.5-1.4 - mg/dL ?Estimated Glomerular Filt Rate > 60 - ?Glucose Fasting 85 60-9 9 - mg/dL ?Calcium 9.2 8.4-10.2 - m g/dL ???Lab:Lipid Panel (Order Da te - 07/17/2023) (Collection Date 07/17/2023) ? Value Reference Range ?Triglycerides 88 <150 - mg/dL ?Cholesterol 224 H <200 - m g/dL ?LDL Cholesterol Calculated 135 H <100 - mg/dL ?HDL Cholesterol 72 >40 - mg/dL ???Lab:PSA,Total (Free>4and< 10) (Order Date 07/17/2023) (Collection Date 07/17/2023) ? Value Reference Range ?PSA,Total (Free>4and<10) < 0.10 0.00-4.00 - ng/mL ???Lab:Microalbumin, Random (Order 07/17/2023) (Collection Date 07/17/2023) ? Value Reference Range ?Creatinine Urine 252.34 - m g/dL ?Microalbumin Urine 37.0 - mg/L ?Microalbum Creatinin e Ratio Ur 14.6 <30 - ug/mg cr * Examination: ???General Examination: ?GENERAL APPEARANCE:?well developed, well nourished, in no acute distress.?HEAD:?normocephalic, atraumatic.?EYES:?pupils equal, round, reactive to light and accommodation, sclera non-icteric.?EARS:?normal.?ORAL CAVITY:?mucosa moist.?THROAT:?clear.?NECK/THYROID:?neck supple, full range of motion, no cervical lymphadenopathy, no bruits.?SKIN:?warm and dry, no suspicious lesions.?HEART:?regular rate and rhythm, S1, S2 normal, no murmurs.?LUNGS:?clear to auscultation bilaterally.?ABDOMEN:?soft, nontender, nondistended, bowel sounds present, normal, no organomegaly , no masses palpable.?RECTAL EXAM:?normal tone, no external hemorrhoids, no masses palpable, prostate normal, stool guaiac negative.?MALE GENITOURINARY:?circumcised, no testicular mass, testes descended bilaterally.?EXTREMITIES:?no clubbing, cyanosis, or edema.?NEUROLOGIC:?nonfocal, motor strength normal upper and lower extremities, sensory exam intact.? Assessment: * Assessment: 1.?Annual physical exam - Z0 0.00 (Primary)?2.?Prostate cancer - C61?3.?Other male erectile dysfunction - N52.8?4.?Tubular adenoma - D36.9?5.?Prediabetes - R73.09?6.?Pure hypercholesterolemia - E78.00?7.?Colon cancer screening - Z12.11 8.?Depression screening - Z13.31? Plan: * Treatment: 2.?Prostate cancer? Notes: is followed by urology.?? 3.?Other male erectile dysfu nction? Notes: started to take tadalafil.?? 4.?Tubular adenoma? Notes: will get colonoscopy this year/ [facility] DUE END YEAR , HE IS ON PV RECALL LIST AND HE IS AWARE THEY WILL CONTACT HIM.?? 5.?Prediabetes? Notes: stable, no need for medication at this time.?? 6.?Pure hypercholesterolemia ? Notes: stable.?? 7.?Colon cancer screening?LAB: Occult Blood, Stool, Guaiac?Negative ? Value Reference Range ?Occult Blood, Stool, Guaiac Neg Notes: guaiac negative.??8.?Depression screening? Notes: negative screen.?? * Procedure Codes:?88102 TEST FOR BLOOD, FECES * Follow Up:?1 Year * * Sign off status: Completed true * Provider:?Timothy Choudhury MD Date:?0 07/27/2023 Generated for Printi ng/Jean Paul/eTransmitting on:?07/23/2024 11:54 AM EST History and Physical Notes * HPI (History of Present Illness) Category Sub-Category Detail Notes Category Not es Symptom(s) patient is a 62 yo male here for physical with review of recent labs and follow up of chronic issues/ had prostate cancer and has incontinence and erectile dysfunction Depression Screening PHQ-9 Little interest or pleasure in doing things: Not at all Feeling down, depressed, or hopeless: No t at all Trouble falling or staying asleep, or sl eeping too much: Not at all Feeling tired or having little energy: N ot at all Poor appetite or overeating: Not at all Feeling bad about yourself o r that you are a failure, or have let yourself or your family down: Not at all Trouble concentrating on thi ngs, such as reading the newspaper or watching television: Not at all Moving or speaking so slowly that other people could have noticed; or the opposite, being so fidgety or restless that you have been moving around a lot more than usual: Not at all Thoughts that you would be b casey off or of hurting yourself in some way: Not at all Total Score: 0 Interpretation and Intervention Depression Sona barragan Findings: Negative Follow-Up for Depression: : review of PH Q-9 found negative result, no follow-up needed SDOH Questions SDOH Questions In the past year have you been worried about losing housing?: No In the past year have you or any family members you live with been unable to get any of the following when it was really needed? Check all that apply:: None Communication Needs Communication Needs Does the patient have a hearing impairment: No Does the patient have a vision impairmen t?: Yes ?If yes, what is the vision impairment?: Glasses Does the patient have a cognition impair ment?: No Examination Category Sub-Category Detail Notes Category Not es General Examination GENERAL APPEARANCE: well dev eloped, well nourished, in no acute distress HEAD: normocephalic, atrau matic EYES: pupils equal, round, reactive to light and accommodation, sclera non- icteric EARS: normal THROAT: clear NECK/THYROID: neck supple, full ra nge of motion, no cervical lymphadenopathy, no bruits HEART: regular rate and rhy thm, S1, S2 normal, no murmurs LUNGS: clear to auscultatio n bilaterally ABDOMEN: soft, nontender, non distended, bowel sounds present, normal, no organomegaly , no masses palpable NEUROLOGIC: nonfocal, motor stre ngth normal upper and lower extremities, sensory exam intact SKIN: warm and dry, no servando picious lesions EXTREMITIES: no clubbing, cyanosi s, or edema MALE GENITOURINARY: circumcised, no test icular mass, testes descended bilaterally RECTAL EXAM: normal tone, no exte rnal hemorrhoids, no masses palpable, prostate normal, stool guaiac negative ORAL CAVITY: mucosa moist
--- OUTSIDE RECORDS SUMMARY | 2024-07-23 11:55 | XMS_ITS ---
Author Organization Timothy Choudhury MD Address [address] [place] [phone] Care Team Providers Care Paraprofessional Interpreter Name Role Phone Timothy Choudhury Primary Care Provider REASON FOR VISIT FLU SHOT Immunizations Vaccine Route Administration Date Status Comme nts Fluarix Quadrivalent - 150 IM Intramuscular 04/19/2024 Adm inistered Encounters Encounter Location Date Provider Diagnosis Timothy Choudhury MD [address] [place] [address] Drive [address] [place] [phone] 04/19/2024 Timothy Choudhury Encounter for immunization Z23 Assessments Encounter Date Diagnosis (ICD Code) Assessment Notes Treatment Notes Treatment Clinical Notes Section Notes 04/19/2024 Encounter for immunization (ICD-10 - Z23) Plan Of Treatment Next Appt Details Provider Name:Timothy nolasco, 07/30/2024 08:30:00 AM, [address] [place] [address], Suite [facility], [place], [place], [phone], Progress Notes * Miquel JESUSDOB:1960 (63 yo M)Acc No.[id number]:04/19/2024 Progress Note Patient:?Miquel Jesus Provider:?Timothy Choudhury MD :1960???Age:63 Y???Sex:Male Vijay e:04/19/2024 Address: [address] [id number] Subjective: * Chief Complaints: * ???FLU SHOT * Medical History:? * Surgical History:? * Hospitalization/Major Diagno stic Procedure:? * Medications:? Objective: Assessment: * Assessment: 1.?Encounter for immunizatio n - Z23 (Primary)? Plan: * Treatment: * Immunizations:? Fluarix Quadrivalent - 150 : 0.5 mL (Dose No:1) (Route: Intramuscular) given by Leesa Alcocer on Left Deltoid * Procedure Codes:?24053 FLU V ACCINE NO PRESERV 3 & >70102 IMMUNIZATION ADMIN * * Sign off status: Completed true * Provider:?Timothy Choudhury MD Date:?1 Generated for Charla plaza/Jean Paul/Kaylenitting on:?07/23/2024 11:54 AM EST
--- OUTSIDE RECORDS SUMMARY | 2024-07-23 11:55 | XMS_ITS ---
Author Organization Timothy Choudhury MD Address [address] [place], [place] [phone] Care Team Providers Care Protective Services Social Worker Name Role Phone Timothy Choudhury Primary Care Provider Results Component Value Reference Range Notes Complete Blood Count Auto Di ff (Not yet reviewed by provider) Interpretation: Performing Lab:[facility], [address] [place] [phone] Notes/Report: White Blood Count 6.4 4.8-10.8 X10*3/uL [...] NRBC Abs Auto 0.000 0.0-0.012 X10*3/uL Comprehensive [place]. Panel Fa st (Not yet reviewed by provider) Interpretation: Performing Lab:[facility], [address] [place] [phone] Notes/Report: Sodium 138 135-145 mmol/L Potassium 4.2 [...] yet reviewe d by provider) Interpretation: Performing Lab:[facility], [address] [place] [phone] Notes/Report: Triglycerides 71 <150 mg/dL Desirable Triglyceride: [...] yet revi ewed by provider) Interpretation: Performing Lab:[facility], [address] [place] [phone] Notes/Report: Hemoglobin A1c % 5.0 <6.0 % [...] average glucose, using the formula of the A4J-Siocsiz Average Glucose study (ADAG), Diabetes Care, Vol.31,#8, Jan. 2007 REASON FOR VISIT FASTING LABS Encounters Encounter Location Date Provider Diagnosis Timothy Choudhury MD [address] [place] [address] [address] [place], [place] [phone] 07/23/2024 Timothy Choudhury Blood tests for routine general physical examination Z00.00 and Prediabetes R73.09 Assessments Encounter Date Diagnosis (ICD Code) Assessment Notes Treatment Notes Treatment Clinical Notes Section Notes 07/23/2024 Blood tests for routine general physical examination (ICD-10 - Z00.00) 07/23/2024 Prediabetes (ICD-10 - R73.09) Plan Of Treatment Pending Test Test Name Order Date Complete Blood Count Auto Diff 5 Comprehensive [place]. Panel Fast 5 Lipid Panel 07/23/2024 PSA,Total (Free>4and<10) 07/23/2024 Microalbumin, Random 07/23/2024 Hemoglobin A1c 07/23/2024 UA ClnCatch+Micro w/rflx Cult 07/23/2024 Next Appt Details Provider Name:Timothy nolasco, 07/30/2024 08:30:00 AM, [address] [facility], [address], [place], [phone], Progress Notes * Miquel JESUSDOB:1960 (63 yo M)Acc No.[id number]:07/23/2024 Progress Note Patient:?Miquel JESUS Provider:?Timothy Choudhury MD :1960???Age:63 Y???Sex:Male Vijay e:07/23/2024 Address: [address] [facility] Subjective: * Chief Complaints: * ???1. FASTING LABS. * Medical History:? Objective: * Vitals:? Assessment: * Assessment: 1.?Blood tests for routine g eneral physical examination - Z00.00 (Primary)???2.?Prediabetes - R73.09??? Plan: * Treatment: 2.?Prediabetes?LAB: Complete Blood Count Auto Diff (Collection Date & Time - 07/23/2024 07:30 AM) ?LAB: Comprehensive [place]. Panel Fast (Collection Date & Time - 07/23/2024 07:30 AM) ?LAB: Lipid Panel (Collection Date & Time - 07/23/2024 07:30 AM) ?LAB: PSA,Total (Free>4and<10) ?LAB: Microalbumin, Random ?LAB: Hemoglobin A1c (Collection Date & Time - 07/23/2024 07:30 AM) ?LAB: UA ClnCatch+Micro w/rflx Cult * Procedure Codes:?08596 VENIP UNCT, ROUTINE* * * The named appointment provid er may or may not be the originator of this progress note, and it is not deemed complete until electronically signed by the appointment provider. Sign off status: Pending * Provider:?Timothy Choudhury MD Date:?0 07/23/2024 Generated for Printi ng/Faxing/eTransmitting on:?07/23/2024 11:54 AM EST
[2024-07-23 12:01] LABS: Creatinine Urine 192.63 mg/dL; Microalbum/Creatinine Ratio Ur 9.8 ug/mg cr (<30)
[2024-07-23 15:30] LABS: PSA,Total (Free>4and<10) < 0.10 ng/mL (0.00-4.00)
== END 2024-07-23 07:31 | disposition home or self-care (01) ==
LOC: HO.LNP 07:30
PROVIDERS: Visit Provider Internal Medicine
DX: Z00.00 Encounter for general adult medical examination without abnormal findings (principal); R73.09 Other abnormal glucose; Z12.5 Encounter for screening for malignant neoplasm of prostate
CPT/HCPCS: 80053; 80061; 81003; 82043; 82570; 83036; 84153; 85025

== ENCOUNTER 2025-03-07 07:04 | Day surgery (SDC) | payer BC, SELFPAY ==
--- OUTSIDE RECORDS SUMMARY | 2024-04-19 05:00 | XMS_ITS ---
Author Organization Timothy Choudhury MD Address [address] [place] [phone] Care Team Providers Care Administrative Program Specialist Name Role Phone Timothy Choudhury Primary Care Provider REASON FOR VISIT FLU SHOT Immunizations Vaccine Route Administration Date Status Comme nts Fluarix Quadrivalent - 150 IM Intramuscular 04/19/2024 Adm inistered Encounters Encounter Location Date Provider Diagnosis Timothy Choudhury MD [address] [place] [address] [place] [phone] 04/19/2024 Timothy Choudhury Encounter for immunization Z23 Assessments Encounter Date Diagnosis (ICD Code) Assessment Notes Treatment Notes Treatment Clinical Notes Section Notes 04/19/2024 Encounter for immunization (ICD-10 - Z23) Plan Of Treatment Next Appt Details Provider Name:Timothy nolasco, 07/31/2025 07:00:00 AM, [address] [place] [address], [phone], Provider Name:Timothy nolasco, 08/07/2025 08:30:00 AM, [address] [place] [address], [address], [phone], Progress Notes * Miquel JESUSDOB:1960 (63 yo M)Acc No.[id number]:04/19/2024 Progress Note Patient: Sheree louHilariokira Provider: Ron Choudhury MD :1960 A ge:63 Y S ex:Male Date:04/19/2024 Address:[id number] Subjective: * Chief Complaints: * F HAYLIE SHOT * Medical History: * Surgical History: * Hospitalization/Major Diagno stic Procedure: * Medications: Objective: Assessment: * Assessment: 1. E ncounter for immunization - Z23 (Primary) Plan: * Treatment: * Immunizations: Fluarix Quadrivalent - 150 : 0.5 mL (Dose No:1) (Route: Intramuscular) given by Leesa Alcocer on Left Deltoid * Procedure Codes: 9 0656 FLU VACCINE NO PRESERV 3 & >64735 IMMUNIZATION ADMIN * * Sign off status: Completed true * Provider: Ron Choudhury MD Date: 1 Generated for Charla plaza/Jean Paul/Kaylenitting on: 0 01/21/2025 12:38 PM EDT
--- OUTSIDE RECORDS SUMMARY | 2025-01-21 12:38 | XMS_ITS | Patient Health Record ---
Author Organization [facility] Address [address] [place] [address] Care Team Providers Care Retail Sales Representative Name Role Phone Macey SMITH, Timothy Primary Care Provider Roberto Ellsworth Unavailable [phone] Allergies No Known Allergies Reason For Referral No Information Medications Medication SIG (Take, Route, Frequency, Duration) Notes Start Date End Date Status Tadalafil Active Immunizations Vaccine Route Administration Date Status Comme nts Influenza Unknown 03/20/2019 Refused Social History Tobacco Use: Social History Observation Description Date Details (start date - stop date) Never Smoker NA - NA Tobacco Use/Smoking Question Answer Notes Patient is a nonsmoker Alcohol Screen Question Answer Notes Did you have a drink contain ing alcohol in the past year? Yes How often did you have a dri nk containing alcohol in the past year? 4 or more times a week (4 points) How many drinks did you have on a typical day when you were drinking in the past year? 1 or 2 drinks (0 point) How often did you have 6 or more drinks on one occasion in the past year? Never (0 point) Points 4 Interpretation Positive Section Notes: Nonsmoker; 2 drinks per nigh t Nonsmoker; 2 drinks per nigh t Problems Problem Type SNOMED Code ICD Code Onset Dates Problem Status W/U Status Risk Notes Problem Colon cancer screening (Z12.11) Active confirmed Problem [id number] Encounter for screening for malignant neoplasm of colon (Z12.11) Active confirmed Problem Preprocedural examination (968622186903366) Preprocedural examination (Z01.818) Active confirmed Problem [id number] Pre-procedural examination (Z01.818) Active confirmed Problem History of adenomatous polyp of colon (772794712) History of adenomatous polyp of colon (Z86.0101) Active confirmed Vital Signs Blood pressure diastolic 77 mm Hg 11/29/2024 Height 71 in 11/29/2024 Blood pressure systolic 111 mm Hg 11/29/2024 Weight 164 lbs 11/29/2024 BMI 22.87 kg/m2 11/29/2024 Procedures Procedure Date Ordered Date Performed Result Body Sit e COLONOSCOPY 11/29/2024 N/A Encounters Encounter Location Date Provider Diagnosis [facility] [address] [place] [address] 11/29/2024 Roberto Chew History of adenomato us polyp of colon Z86.0101 ; Preprocedural examination Z01.818 and Colon cancer screening Z12.11 Assessments Encounter Date Diagnosis (ICD Code) Assessment Notes Treatment Notes Treatment Clinical Notes Section Notes 11/29/2024 Preprocedural examination (ICD-10 - Z01.818) .Overall, Latrell appears quite well. Given his history of tubular adenomas removed over 5 years ago, his age, and good clinical appearance, I did recommend a follow-up colonoscopy for further screening purposes. We did review the rationale for this in regard to colon cancer prevention. Full consent has been obtained for this, including risks of bleeding and perforation. The procedure will be done with monitored anesthesia care. Latrell was comfortable with this plan. Thank you again for allowing me to participate in Latrell's care. I shall continue to keep you advised of his progress. 11/29/2024 History of adenomatous polyp of colon (ICD-10 - Z86.0101) .Overall, Latrell appears quite well. Given his history of tubular adenomas removed over 5 years ago, his age, and good clinical appearance, I did recommend a follow-up colonoscopy for further screening purposes. We did review the rationale for this in regard to colon cancer prevention. Full consent has been obtained for this, including risks of bleeding and perforation. The procedure will be done with monitored anesthesia care. Latrell was comfortable with this plan. Thank you again for allowing me to participate in Latrell's care. I shall continue to keep you advised of his progress. 11/29/2024 Colon cancer screening (ICD-10 - Z12.11) .Overall, Latrell appears quite well. Given his history of tubular adenomas removed over 5 years ago, his age, and good clinical appearance, I did recommend a follow-up colonoscopy for further screening purposes. We did review the rationale for this in regard to colon cancer prevention. Full consent has been obtained for this, including risks of bleeding and perforation. The procedure will be done with monitored anesthesia care. Latrell was comfortable with this plan. Thank you again for allowing me to participate in Latrell's care. I shall continue to keep you advised of his progress. Plan Of Treatment Pending Test Test Name Order Date COLONOSCOPY 11/29/2024 Future Test Test Name Order Date COLONOSCOPY 03/20/2019 Next Appt Details Provider Name:Roberto Chew , 03/07/2025 08:30:00 AM, [address] [place] [address] , [place], [place], [phone], Insurance Providers Payer Name Payer Address Payer Phone Subscriber Number Group Number Insured Name Patient Relationship to Insured Coverage Start Date Coverage End Date [facility] [address] [place] [address] [id number] SOPHIA JESUS Self - patient is the insured Medical (General) History Medical History History ICD Code Denies [place],DM,CVA,Lung disease,renal dise ase 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
[2025-03-05 14:10] VITALS: BMI 22.9
--- NOTE | 2025-03-06 08:19 | HO.ANESPROP2 ---
Documented by User: Lucy Barrett NP 03/06/25 08:20 HPI - Anesthesia Eval Consult details Narrative: 64yo M for Colonoscopy [facility] Past Medical History Medical History Macular degeneration of left eye Prostate cancer Blind right eye Surgical History Surgical History Hx of prostatectomy Hx of left cataract extraction H/O colonoscopy Social History Social History (Updated 03/05/25 @ 14:13 by Jennifer Edgar RN) Household Members: Spouse Are you a primary home care and home health aides teacher to a significant other at home: No Do you presently have visiting nurse or other home services: No Patient Tobacco Use Status: Never used Tobacco Use of substances other than those prescribed or required for medical reasons: No Have you been hit, kicked, punched, or otherwise hurt by someone within the past year? If so, by whom?: No Are you DNR?: No Advance Directives: No Advance Directives Information Provided: Yes Poor oral hygiene: No Meds Allergies Allergy/AdvReac Type Severity Reaction Status Date / Time No Known Allergies (No Known Allergy Verified 03/07/25 07:17 Allergies*) Home Medications ?Medication ?Instructions ?Recorded ?Confirmed ?Last Taken ?Type tadalafil 20 mg tablet 20 mg PO NEEDED 03/05/25 03/05/25 Unknown History Exam Height,Weight and Vital Signs: Height 5 ft 11 in Weight 74.389 kg Assessment and Plan Assessment Anesthesia Assessment: Chart Reviewed Documented by User: Aranza Silverio MD 03/07/25 07:52 [facility] Past Medical History Medical History Macular degeneration of left eye Prostate cancer Blind right eye Family History Family history of problems with anesthesia: No Surgical History Surgical History Hx of prostatectomy Hx of left cataract extraction H/O colonoscopy History of Problems with Anesthesia: No Social History Social History (Updated 03/05/25 @ 14:13 by Jennifer Edgar RN) Household Members: Spouse Are you a primary home care and home health aides teacher to a significant other at home: No Do you presently have visiting nurse or other home services: No Patient Tobacco Use Status: Never used Tobacco Use of substances other than those prescribed or required for medical reasons: No Have you been hit, kicked, punched, or otherwise hurt by someone within the past year? If so, by whom?: No Are you DNR?: No Advance Directives: No Advance Directives Information Provided: Yes Poor oral hygiene: No Meds Allergies Allergy/AdvReac Type Severity Reaction Status Date / Time No Known Allergies (No Known Allergy Verified 03/07/25 07:17 Allergies*) Home Medications ?Medication ?Instructions ?Recorded ?Confirmed ?Last Taken ?Type tadalafil 20 mg tablet 20 mg PO NEEDED 03/05/25 03/05/25 Unknown History Exam Airway Mallampati Class: II TM Dist: >3cm Neck ROM: Full Partial: Upper Heart: rrr Lungs: cta Assessment and Plan Assessment Anesthesia Assessment: Anesthesia Plan Discussed Final Anesthetic Review Family History of Problems with Anesthesia: No History of Problems with Anesthesia: No NPO: Yes ASA Class: I Final Preanesthetic Review: No Changes in Pt Med Stat, Meds/Allgs Chart Reviewed and Consent Obtained/Reviewed Patient Risk: Low Procedure Risk: Low Anesthetic Plan Anesthetic Plan: MAC: Disposition: Standard PACU
[2025-03-07 07:19] VITALS: BP 142/85; PULSE 79; RESP 12; TEMP 36.6; O2SAT 96; BMI 21.6
[2025-03-07] MEDS: Lactated Ringers 1,000 ML 100 ML IVCONT (07:46)
[2025-03-07 09:54] VITALS: BP 81/45; PULSE 66; RESP 14; TEMP 36.1; O2SAT 96
--- NOTE | 2025-03-07 09:57 | PM.OP ---
Brief Operative Note Date of Service: 03/07/25 Pre-op diagnosis: Screening Post-op diagnosis: other (Polyps) Procedure: Colonoscopy to the cecum and TI with hot snare polypectomies and bx/removal of polyp Surgeon: Roberto Chew MD Anesthesia: MAC Was an Relations Director used for this Procedure?: No Estimated blood loss (mL): 2.0 Pathology: other (A. Polyp at 40cm B. Ascending colon polyps C. Transverse colon polyp) Condition: stable Disposition: PACU
[2025-03-07 09:59] VITALS: BP 92/59; PULSE 69; RESP 16; O2SAT 96
[2025-03-07 10:09] VITALS: BP 112/68; PULSE 64; RESP 18; TEMP 36.1; O2SAT 97
--- NOTE | 2025-03-07 11:04 | OP_ITS ---
DATE OF SERVICE: 03/07/2025 SURGEON: Roberto Chew MD INDICATIONS: The patient presents for evaluation of colorectal cancer screening and personal history of tubular adenomas of the colon. Full consent has been obtained from him for this, including risks of bleeding and perforation. PREOPERATIVE DIAGNOSIS: POSTOPERATIVE DIAGNOSIS: PROCEDURE PERFORMED: Colonoscopy to the cecum and terminal ileum with multiple hot snare polypectomies, and biopsy and removal of polyp. ESTIMATED BLOOD LOSS: COMPLICATIONS: ANESTHESIA: Medication used, monitored anesthesia care. ASSISTANTS: SPECIMENS: PREOPERATIVE DIAGNOSES: Colorectal cancer screening and personal history of tubular adenomas of the colon. POSTOPERATIVE DIAGNOSES: Colorectal cancer screening and personal history of tubular adenomas of the colon, colon polyps, diverticulosis, and internal hemorrhoids. DESCRIPTION OF PROCEDURE: The patient was placed in the left lateral decubitus position. The digital rectal exam revealed no abnormalities. The [employer] video pediatric colonoscope was entered into the rectum and advanced easily to the cecum. Once in the cecum, I did identify a normal-appearing cecal pouch with appendiceal orifice and a normal-appearing ileocecal valve. The terminal ileum was cannulated and appeared normal. The scope was withdrawn back in the colon. The entire cecum and ileocecal valve appeared normal. The scope was slowly withdrawn assessing all mucosal surfaces carefully. Preparation was excellent. In the ascending colon were 3 polyps. One was only approximately 3 mm in diameter and was removed by cold biopsy forceps completely. The other 2 polyps were between 8 and 10 mm in diameter and removed by hot snare polypectomies. Both polyps were recovered by suction and placed in the same container. The polypectomy sites appeared clean, without any sign of residual polyp nor bleeding. In the transverse colon was an approximately 12 mm polyp, which was removed by hot snare polypectomy and recovered by suction. The polypectomy site appeared clean, without any sign of residual polyp nor bleeding. At 40cm was a less than 5mm polyp which was biopsies and removed with the cold biopsy forceps. I did not visualize any other polyps, colitis, nor angiodysplasia. There was a mild amount of sigmoid diverticulosis. In the rectum, scope was retroflexed visualizing internal hemorrhoids, but no other pathology. The rectal mucosa appeared normal. Scope was straightened and withdrawn from the patient. He tolerated the procedure well and was returned to the recovery area in stable condition. IMPRESSION: 1. Colon polyps. 2. Diverticulosis. 3. Internal hemorrhoids. PLAN: The results of the Pathology will be checked. Given these findings and his previous history, I would recommend a repeat colonoscopy in 3 years for further screening and surveillance. He was advised not to use any aspirin or NSAIDs for 1 week. MD HARINDER Francois/RICKIE / [id number] MTDD
== END 2025-03-07 11:00 | disposition home or self-care (01) ==
PROVIDERS: PCP Internal Medicine; Visit Provider Internal Medicine
PROC: 0DJD8ZZ Inspection of Lower Intestinal Tract, Via Natural or Artificial Opening Endoscopic (ICD-10-PCS; CPT 45378; principal; 2025-03-07 08:30)
DX: Z12.11 Encounter for screening for malignant neoplasm of colon (principal); D12.2 Benign neoplasm of ascending colon; D12.3 Benign neoplasm of transverse colon; D12.5 Benign neoplasm of sigmoid colon; K57.30 Diverticulosis of large intestine without perforation or abscess without bleeding; K64.8 Other hemorrhoids; Z86.0101 Personal history of adenomatous and serrated colon polyps
CPT/HCPCS: 45385; 45380; 88305; J2704